=== PATIENT | male | born 1990 | race Hispanic/Latino ===

== ENCOUNTER 2017-10-22 07:18 | Outpatient (CLI) | payer BC ==
--- NOTE | 2017-10-22 08:46 | ULT ---
RIGHT UPPER QUADRANT ULTRASOUND: Date: 10-22-17 History: Epigastric pain over the last couple of months. Nausea after eating. Comparison: 03-28-14 FINDINGS: There are tiny punctate echogenic foci along the wall of the gallbladder which do not demonstrate sha dowing or ====== artifact and may represent very tiny gallbladder polyps. The gallbladder wall is at the upper limits of normal in thickness, however, there is no pericholecystic fluid is seen. The comm on duct is normal in caliber measuring 0.3 cm. The previously seen gallbladder wall thickening and ga llbladder calculi noted on the prior exam in 2013 are no longer seen on today's exam. The right kidney measures 10.7 cm in length. There does appear to be a hypoechoic mass in the posteri or aspect midportion of the right kidney measuring 4.5 cm in greatest dimension. This is difficult to further characterize or evaluate on this exam and further evaluation with CT scan is recommended. The liver, visualized portions of the IVC, limited visualized portions of the pancreas and abdominal aorta demonstrate a normal sonographic appearance. IMPRESSION: 1. Mass like hypoechoic area at the most posterior aspect of the junction of the midportion and super ior pole right kidney. Further evaluation with CT scan of the abdomen with IV contrast is recommended . 2. Tiny nonmobile punctate echogenic foci within the gallbladder lumen which may represent tiny gallb ladder polyps measuring much less than 4 mm. POS: [facility]
== END 2017-10-22 07:19 | disposition home or self-care (01) ==
LOC: MADULT 07:18
PROVIDERS: ATTEND Internal Medicine Gastroenterology
DX: R10.13 Epigastric pain (principal)
CPT/HCPCS: 76705

== ENCOUNTER 2017-11-11 09:21 | Outpatient (CLI) | payer BC ==
[2017-11-11] MEDS ORDERED: Iopamidol 370 76% 100 ML VIAL ONE (09:47)
--- NOTE | 2017-11-11 12:08 | CT ---
CT ABDOMEN AND PELVIS WITH CONTRAST: Date: 11/11/17 HISTORY: Possible right-sided renal mass. COMPARISON: Ultrasound dated 10/22/17. FINDINGS: On the noncontrast evaluation, there is no nephroureterolithiasis or hydroureteronephrosis. No second jb evidence of recently passed stone. No calculus within the urinary bladder. The lung bases are clear. No pericardial effusion. On the delayed phase of contrast, there is normal contrast filling of the renal collecting systems, c alices, and ureters. No extensive mass effect. No filling defect. Urinary bladder is unremarkable. No abnormal renal enhancing mass. Pancreas is visualized and is normal. No dilated air-filled loops of large or small bowel. The aortoi liac contour is normal. Gallbladder is unremarkable. Liver is unremarkable, as is the spleen. IMPRESSION: 1. No acute intra-abdominal abnormality. 2. No renal mass is appreciated. 3. No filling defect of the renal collecting system, calices, or ureters. POS: [facility]
== END 2017-11-11 09:22 | disposition home or self-care (01) ==
LOC: MADCT 09:21
PROVIDERS: ATTEND Internal Medicine Gastroenterology
DX: R93.2 Abnormal findings on diagnostic imaging of liver and biliary tract (principal); N28.89 Other specified disorders of kidney and ureter
CPT/HCPCS: 74177

== ENCOUNTER 2019-02-16 15:59 | Emergency (ER) | payer BC | END 2019-02-16 16:30 | disposition home or self-care (01) | LOC: MADERS 15:59 | DX: S51.832A Puncture wound without foreign body of left forearm, initial encounter (principal); K21.9 Gastro-esophageal reflux disease without esophagitis; W22.8XXA Striking against or struck by other objects, initial encounter | CPT/HCPCS: 99283 ==

== ENCOUNTER 2019-03-30 16:52 | Emergency (ER) | payer BC ==
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
[2019-03-30] MEDS ORDERED: Prochlorperazine 10 MG/2 ML VIAL ONE (18:13)
[2019-03-30] MEDS ORDERED: diphenhydrAMINE 50 MG/ML VIAL ONE (18:13)
[2019-03-30] MEDS ORDERED: Ketorolac Tromethamine 30 MG/ML VIAL ONE (18:13)
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
== END 2019-03-30 18:40 | disposition home or self-care (01) ==
LOC: MADERS 16:52
DX: S02.31XA Fracture of orbital floor, right side, initial encounter for closed fracture (principal); G43.909 Migraine, unspecified, not intractable, without status migrainosus; K21.9 Gastro-esophageal reflux disease without esophagitis; F41.9 Anxiety disorder, unspecified; Y04.0XXA Assault by unarmed brawl or fight, initial encounter
CPT/HCPCS: 70450; 72125; 96372; J0780; J1200; J1885